=== PATIENT | male | born 1955 | race Hispanic/Latino ===

== ENCOUNTER 2018-05-26 08:41 | Emergency (ER) | payer BC, OTHER ==
[2018-05-26 09:43] LABS: Absolute Lymphocytes (CBC) 2.3 K/uL (0.7-4.9); Absolute Monocytes 0.6 K/uL (0.1-1.3); Absolute Neutrophil 5.1 K/uL (1.8-8.0); Basophils % 0.3 % (0-1.3); Eosinophils % 0.5 % (0-4.4); Hematocrit 44.5 % (39.6-49.0); Lymphocytes % 28.8 % (15.3-44.8); MCH 33.1 pg (27.0-35.0); MCV 96.1 fL (80-100); MPV 7.8 fL (7.6-11.3); Monocytes % 7.2 % (3.3-12.3); RBC Red Blood Cell Count 4.63 M/uL (4.33-5.43)
[2018-05-26 09:47] LABS: Protime INR 1.06
--- NOTE | 2018-05-26 09:47 | RAD REPORT ---
EXAM DESCRIPTION: CT - Head Brain Wo Cont - 05/26/2018 9:31 am CLINICAL HISTORY: Dizziness COMPARISON: None. TECHNIQUE: Computed axial tomography of the head was obtained. IV contrast was not requested. All CT scans are performed using dose optimization technique as appropriate and may include automated exposure control or mA/KV adjustment according to patient size. FINDINGS: An intracranial bleed is not seen . The ventricles are normal in caliber. No extra-axial fluid collection is noted. The right aspect of the sphenoid sinus is opacified. IMPRESSION: No acute intracranial abnormality is seen. If patient's symptoms persist MRI of the bra in would be recommended. Sphenoid sinusitis
[2018-05-26 09:56] LABS: BUN Blood Urea Nitrogen 12 mg/dL (7-18); Bicarbonate 25 mmol/L (21-32); CKMB Creatine Kinase MB < 1.0 ng/mL (0.3-3.6); Creatine Phosphokinase 125 U/L (39-308); Glucose Level 119 mg/dL (74-106); Magnesium 2.2 mg/dL (1.8-2.4); NT PRO-BNP 35 pg/mL (<125); Potassium 3.8 mmol/L (3.5-5.1); Sodium Level 140 mmol/L (136-145)
[2018-05-26] MEDS ORDERED: MECLIZINE HCL 12.5 MG TAB ONE (10:33)
--- NOTE | 2018-05-26 11:14 | ER ---
Nurse's Notes [facility] Name: Juancarlos Robin Age: 62 yrs Sex: Male : 1955 Arrival Date: 05/26/2018 Time: 08:45 Bed 6 Private MD: Balta Rosenthal E Diagnosis: Dizziness and giddiness Presentation: 05/26 08:51 Presenting complaint: Patient states: "I think I got overheated yesterday. I was ss working outside and I got real weak all over. I checked by blood sugar and it was 124, so it wasn't that, but I feel better today just a little lightheaded still.". Transition of care: patient was not received from another setting of care. Onset of symptoms was May 25, 2018. Risk Assessment: Do you want to hurt yourself or someone else? Patient reports no desire to harm self or others. Initial Sepsis Screen: Does the patient meet any 2 criteria? No. Patient's initial sepsis screen is negative. Does the patient have a suspected source of infection? No. Patient's initial sepsis screen is negative. Care prior to arrival: None. 08:51 Method Of Arrival: Ambulatory ss 08:51 Acuity: CHINO 3 ss Historical: - Allergies: 08:54 No Known Allergies; ss - Home Meds: 08:54 doxazosin 2 mg oral tab 1 tab once daily [Active]; losartan 50 mg oral tab 1 tab once ss daily [Active]; - PMHx: 08:54 Hypertension; High Cholesterol; ss - PSHx: 08:54 None; ss - Immunization history:: Adult Immunizations up to date. - Social history:: Smoking status: Patient/guardian denies using tobacco. - Ebola Screening: : Patient denies exposure to infectious person Patient denies travel to an Ebola-affected area in the 21 days before illness onset. Screenin:14 Abuse screen: Denies threats or abuse. Denies injuries from another. Nutritional ph screening: No deficits noted. Tuberculosis screening: No symptoms or risk factors identified. Fall Risk No fall in past 12 months (0 pts). No secondary diagnosis (0 pts). IV access (20 points). Ambulatory Aid- None/Bed Rest/Nurse Assist (0 pts). Gait- Normal/Bed Rest/Wheelchair (0 pts) Mental Status- Oriented to own ability (0 pts). Total Paiz Fall Scale indicates No Risk (0-24 pts). Assessment: 09:00 General: Appears in no apparent distress. comfortable, well groomed, Behavior is calm, ph cooperative, appropriate for age, Denies fever, feeling ill. Pain: Denies pain. Neuro: Level of Consciousness is awake, alert, obeys commands, Oriented to person, place, time, situation, Reports dizziness, since yesterday Denies weakness blurred vision headache. Cardiovascular: Reports fatigue, lightheadedness, Denies chest pain, nausea, shortness of breath, Capillary refill < 3 seconds Patient's skin is warm and dry. Respiratory: Airway is patent Respiratory effort is even, unlabored, Respiratory pattern is regular, symmetrical. GI: No signs and/or symptoms were reported involving the gastrointestinal system. Patient currently denies diarrhea, nausea, vomiting. : No signs and/or symptoms were reported regarding the genitourinary system. Derm: Skin is intact, is healthy with good turgor, Skin is pink, warm \\T\\ dry. Musculoskeletal: Circulation, motion, and sensation intact. Range of motion: intact in all extremities. 10:19 Reassessment: Patient appears in no apparent distress at this time. Patient and/or ph family updated on plan of care and expected duration. Pain level reassessed. Patient is alert, oriented x 3, equal unlabored respirations, skin warm/dry/pink. Pt resting quietly, awaiting lab and CT results. 11:20 Reassessment: Patient appears in no apparent distress at this time. Patient and/or ph family updated on plan of care and expected duration. Pain level reassessed. Patient is alert, oriented x 3, equal unlabored respirations, skin warm/dry/pink. Pt d/c home w/ family. Vital Signs: 08:54 BP 175 / 86; Pulse 89; Resp 16; Temp 97.7(O); Pulse Ox 97% on R/A; Weight 113.4 kg; ss Height 5 ft. 5 in. (165.10 cm); Pain 0/10; 09:44 BP 146 / 81 LA Supine (man/lg); Pulse 71 MON; em1 09:47 BP 164 / 82 LA Sitting (man/lg); Pulse 71 MON; em1 09:49 BP 154 / 80 LA Standing (man/lg); Pulse 78 MON; em1 10:20 BP 147 / 82; Pulse 69; Resp 16; Pulse Ox 98% on R/A; Pain 0/10; ph 11:20 BP 142 / 78; Pulse 16; Resp 72; Temp 97.8; Pulse Ox 99% on R/A; Pain 0/10; ph 08:54 Body Mass Index 41.60 (113.40 kg, 165.10 cm) ED Course: 08:45 Patient arrived in ED. sb2 08:46 Balta Rosenthal MD is Private Physician. sb2 08:52 Triage completed. ss 08:54 Arm band placed on right wrist. ss 08:55 Charisma Vera FNP-C [facility]. kb 08:55 Balta Stephen MD is Attending Physician. kb 09:10 Edna Livingston RN is Primary Nurse. ph 09:15 Patient has correct armband on for positive identification. Placed in gown. Bed in low ph position. Call light in reach. Side rails up X 1. folder machine operator on. Pulse ox on. NIBP on. Warm blanket given. 09:25 EKG done, by nuclear monitoring technician. reviewed by Charisma RICO. at1 09:32 CT Head Brain wo Cont In Process Unspecified. EDMS 11:13 Balta Rosenthal MD is Referral Physician. kb 11:22 No provider procedures requiring assistance completed. IV discontinued, intact, ph bleeding controlled, No redness/swelling at site. Pressure dressing applied. Administered Medications: 10:30 Drug: Meclizine 25 mg Route: PO; ph 11:21 Follow up: Response: No adverse reaction ph Outcome: 11:13 Discharge ordered by . kb 11:22 Discharged to home ambulatory, with family. ph 11:22 Condition: good 11:22 Discharge instructions given to patient, Instructed on discharge instructions, follow up and referral plans. medication usage, Demonstrated understanding of instructions, follow-up care, medications, Prescriptions given X 1. 11:23 Patient left the ED. ph Signatures: Dispatcher [employer] EDMS Charisma Vera FNP-C FNP-Ckb Martinez, Eric em1 Carmencita Lopez RN RN ss Anne Sanchez, insurance follow up specialist EKG Tat1 Edna Livingston RN RN Tiffany Alvarez sb2
--- NOTE | 2018-05-26 11:14 | EDPHYS ---
Physician Documentation [facility] Name: Juancarlos Robin Age: 62 yrs Sex: Male : 1955 Arrival Date: 05/26/2018 Time: 08:45 Bed 6 Private MD: Balta Rosenthal E ED Physician Balta Stephen HPI: 05/26 10:15 This 62 yrs old Male presents to ER via Ambulatory with complaints of kb Dizziness. 10:15 The patient presents with dizziness. Onset: The symptoms/episode began/occurred kb yesterday. Context: occurred at home, outdoors, occurred while the patient was standing, just prior to the episode the patient experienced no apparent symptoms. Modifying factors: The symptoms are alleviated by holding head still, lying down, the symptoms are aggravated by movement of head. Associated signs and symptoms: The patient has no apparent associated signs or symptoms. Severity of symptoms: At their worst the symptoms were moderate in the emergency department the symptoms have improved. Patient's baseline: Neuro: alert and fully oriented, Motor: no deficits, Ambulation: walks without assistance, Speech: normal. The patient has experienced similar episodes in the past, a few times, today's symptoms are similar. The patient has not recently seen a physician. 11:12 Reports dizziness is worse when turning head from side to side, bending over to get kb clothes out of the dryer, and moving too fast. . Historical: - Allergies: 08:54 No Known Allergies; ss - Home Meds: 08:54 doxazosin 2 mg oral tab 1 tab once daily [Active]; losartan 50 mg oral tab 1 tab once ss daily [Active]; - PMHx: 08:54 Hypertension; High Cholesterol; ss - PSHx: 08:54 None; ss - Immunization history:: Adult Immunizations up to date. - Social history:: Smoking status: Patient/guardian denies using tobacco. - Ebola Screening: : Patient denies exposure to infectious person Patient denies travel to an Ebola-affected area in the 21 days before illness onset. ROS: 10:14 Constitutional: Negative for fever, chills, and weight loss, ENT: Negative for injury, kb pain, and discharge, Neck: Negative for injury, pain, and swelling, Cardiovascular: Negative for chest pain, palpitations, and edema, Respiratory: Negative for shortness of breath, cough, wheezing, and pleuritic chest pain, Abdomen/GI: Negative for abdominal pain, nausea, vomiting, diarrhea, and constipation, Back: Negative for injury and pain, : Negative for injury, bleeding, discharge, and swelling, MS/Extremity: Negative for injury and deformity, Skin: Negative for injury, rash, and discoloration. 10:14 Neuro: Positive for dizziness, Negative for altered mental status, gait disturbance, headache, hearing loss, loss of consciousness, numbness, seizure activity, speech changes, syncope, near syncope, tingling, tinnitus, tremor, visual changes, weakness. Exam: 10:14 Constitutional: This is a well developed, well nourished patient who is awake, alert, kb and in no acute distress. Head/Face: Normocephalic, atraumatic. Eyes: Pupils equal round and reactive to light, extra-ocular motions intact. Lids and lashes normal. Conjunctiva and sclera are non-icteric and not injected. Cornea within normal limits. Periorbital areas with no swelling, redness, or edema. ENT: Nares patent. No nasal discharge, no septal abnormalities noted. Tympanic membranes are normal and external auditory canals are clear. Oropharynx with no redness, swelling, or masses, exudates, or evidence of obstruction, uvula midline. Mucous membranes moist. Neck: Trachea midline, no thyromegaly or masses palpated, and no cervical lymphadenopathy. Supple, full range of motion without nuchal rigidity, or vertebral point tenderness. No Meningismus. Chest/axilla: Normal chest wall appearance and motion. Nontender with no deformity. No lesions are appreciated. Cardiovascular: Regular rate and rhythm with a normal S1 and S2. No gallops, murmurs, or rubs. Normal PMI, no JVD. No pulse deficits. Respiratory: Lungs have equal breath sounds bilaterally, clear to auscultation and percussion. No rales, rhonchi or wheezes noted. No increased work of breathing, no retractions or nasal flaring. Abdomen/GI: Soft, non-tender, with normal bowel sounds. No distension or tympany. No guarding or rebound. No evidence of tenderness throughout. Skin: Warm, dry with normal turgor. Normal color with no rashes, no lesions, and no evidence of cellulitis. MS/ Extremity: Pulses equal, no cyanosis. Neurovascular intact. Full, normal range of motion. Neuro: Awake and alert, GCS 15, oriented to person, place, time, and situation. Cranial nerves II-XII grossly intact. Motor strength 5/5 in all extremities. Sensory grossly intact. Cerebellar exam normal. Normal gait. Vital Signs: 08:54 BP 175 / 86; Pulse 89; Resp 16; Temp 97.7(O); Pulse Ox 97% on R/A; Weight 113.4 kg; ss Height 5 ft. 5 in. (165.10 cm); Pain 0/10; 09:44 BP 146 / 81 LA Supine (man/lg); Pulse 71 MON; em1 09:47 BP 164 / 82 LA Sitting (man/lg); Pulse 71 MON; em1 09:49 BP 154 / 80 LA Standing (man/lg); Pulse 78 MON; em1 10:20 BP 147 / 82; Pulse 69; Resp 16; Pulse Ox 98% on R/A; Pain 0/10; ph 11:20 BP 142 / 78; Pulse 16; Resp 72; Temp 97.8; Pulse Ox 99% on R/A; Pain 0/10; ph 08:54 Body Mass Index 41.60 (113.40 kg, 165.10 cm) ss MDM: 08:55 Patient medically screened. kb 10:14 Data reviewed: vital signs, nurses notes. Data interpreted: Pulse oximetry: on room air kb is 97 %. Interpretation: normal. 11:10 Counseling: I had a detailed discussion with the patient and/or guardian regarding: the kb historical points, exam findings, and any diagnostic results supporting the discharge/admit diagnosis, lab results, radiology results, the need for outpatient follow up, a family practitioner, to return to the emergency department if symptoms worsen or persist or if there are any questions or concerns that arise at home. ED course: Pt reports the dizziness has resolved. Stood up without return of symptoms. States "I'm better." Will follow up with Dr Rosenthal and return if needed. 05/26 09:05 Order name: Basic Metabolic Panel; Complete Time: 09:57 kb 05/26 09:05 Order name: CBC with Diff; Complete Time: 09:45 kb 05/26 09:05 Order name: Ckmb; Complete Time: 09:57 kb 05/26 09:05 Order name: CPK; Complete Time: 09:57 kb 05/26 09:05 Order name: Magnesium; Complete Time: 09:57 kb 05/26 09:05 Order name: NT PRO-BNP; Complete Time: 09:57 kb 05/26 09:05 Order name: PT-INR; Complete Time: 09:49 kb 05/26 09:05 Order name: Ptt, Activated; Complete Time: 09:49 kb 05/26 09:05 Order name: Troponin (emerg Dept Use Only); Complete Time: 09:57 kb 05/26 09:05 Order name: EKG; Complete Time: 09:05 kb 05/26 09:05 Order name: Cardiac monitoring; Complete Time: 09:14 kb 05/26 09:05 Order name: EKG - Nurse/Tech; Complete Time: 09:14 kb 05/26 09:05 Order name: CT Head Brain wo Cont; Complete Time: 09:49 kb 05/26 09:05 Order name: IV Saline Lock; Complete Time: 09:44 kb 05/26 09:05 Order name: Labs collected and sent; Complete Time: 09:44 kb 05/26 09:05 Order name: O2 Per Protocol; Complete Time: 09:13 kb 05/26 09:05 Order name: O2 Sat Monitoring; Complete Time: 09:13 kb 05/26 09:05 Order name: Orthostatics; Complete Time: 09:53 kb Administered Medications: 10:30 Drug: Meclizine 25 mg Route: PO; ph 11:21 Follow up: Response: No adverse reaction ph Disposition: 05/27 08:17 Co-signature as Attending Physician, Balta Stephen MD I agree with the assessment and wa plan of care. Disposition: 05/26/18 11:13 Discharged to Home. Impression: Dizziness and giddiness. - Condition is Stable. - Discharge Instructions: Vertigo, [id number], Dizziness, [id number]. - Prescriptions for Meclizine 25 mg Oral Tablet - take 1 tablet by ORAL route every 8 hours As needed; 30 tablet. - Medication Reconciliation Form, Thank You Letter, Antibiotic Education, Prescription Opioid Use form. - Follow up: Emergency Department; When: As needed; Reason: Worsening of condition. Follow up: Balta Rosenthal MD; When: 2 - 3 days; Reason: Recheck today's complaints, Continuance of care, Re-evaluation by your physician. Signatures: Dispatcher [employer] EDCharisma Willis, MACHINE SHOP SUPERVISOR-C MACHINE SHOP SUPERVISOR-Ckb Carmencita Lopez RN RN Edna Livingston RN RN HaileeBalta MD MD wa Corrections: (The following items were deleted from the chart) 05/26 11:23 11:13 05/26/2018 11:13 Discharged to Home. Impression: Dizziness and giddiness. ph Condition is Stable. Forms are Medication Reconciliation Form, Thank You Letter, Antibiotic Education, Prescription Opioid Use. Follow up: Emergency Department; When: As needed; Reason: Worsening of condition. Follow up: Balat Rosenthal; When: 2 - 3 days; Reason: Recheck today's complaints, Continuance of care, Re-evaluation by your physician. kb
--- NOTE | 2018-05-27 08:35 | EKG ---
Test Date: 2018-05-26 Test Time: 09:10:14 Integrity Director: MARIANNA MEASUREMENT RESULTS: Intervals: Rate: 80 AR: 176 QRSD: 86 QT: 390 QTc: 449 [place]: P: 41 AR: 176 QRS: 35 T: 25 INTERPRETIVE STATEMENTS: Normal sinus rhythm Normal ECG Compared to ECG 02/05/2004 08:59:00 No significant changes Electronically Signed On 05-27-18 08:35:13 CDT by Noé Beard
== END 2018-05-26 11:23 | disposition home or self-care (01) ==
LOC: ER 08:41
DX: R42 Dizziness and giddiness (principal); I10 Essential (primary) hypertension; E78.00 Pure hypercholesterolemia, unspecified
CPT/HCPCS: 36415; 70450; 80048; 82550; 82553; 83735; 83880; 84484; 85025; 85610; 85730; 93005; 99284

== ENCOUNTER 2019-05-03 07:27 | Emergency (ER) | payer OTHER, SELFPAY ==
[2019-05-03 08:06] LABS: Absolute Lymphocytes (CBC) 4.5 K/uL (0.7-4.9); Basophils % 0.2 % (0-1.3); Hematocrit 43.4 % (39.6-49.0); Lymphocytes % 37.9 % (15.3-44.8); RBC Red Blood Cell Count 4.54 M/uL (4.33-5.43)
[2019-05-03 08:11] LABS: Protime INR 1.04
--- NOTE | 2019-05-03 08:18 | RAD REPORT ---
EXAM DESCRIPTION: RAD - Chest Single View - 05/03/2019 8:13 am CLINICAL HISTORY: Dizziness, hypertension COMPARISON: None. TECHNIQUE: AP portable chest image was obtained 0806 hours . FINDINGS: Lung volumes are low accentuating heart size and interstitial markings. No significant segundo lure or volume overload seen. No peripheral mass or consolidation identifiable. Heart size is magnified by the shallow inspiration felt to be upper normal. Vasculature accentuated as well. No measurable pleural effusion and no pneumothorax. No acute bony abnormality seen. No acute aortic findings suspected. IMPRESSION: Shallow inspiration exam shows no peripheral mass or consolidation. The heart size, central lung markings and central vasculature are accentuated by shallow inspiration. This could potentially mask the very earliest stages of failure or volume overload.
--- NOTE | 2019-05-03 08:23 | RAD REPORT ---
EXAM DESCRIPTION: CT - Head Brain Wo Cont - 05/03/2019 8:12 am CLINICAL HISTORY: Dizziness, vertigo, hypertension COMPARISON: CT head May 26, 2018 TECHNIQUE: Axial 5 mm thick images of the head were obtained without IV contrast. All CT scans are performed using dose optimization technique as appropriate and may include automated exposure control or mA/KV adjustment according to patient size. FINDINGS: No intracranial hemorrhage, mass, edema or shift of mid-line structures. No acute cortical based infarction seen. No cortical edema or sulcal effacement. Patient has no significant atrophy or chronic ischemic change. No abnormal extra-axial fluid collections. Ventricles are normal. Intracran ial findings match the 2018 comparison. Mastoid air cells are clear. There is chronic right-sided sphenoid sinusitis. Partially visualized pa ranasal sinuses are otherwise clear. No acute bony findings. IMPRESSION: No intracranial abnormality and no change to the intracranial finding since May 2018. Chronic right sphenoid sinusitis findings stable from 2018.
[2019-05-03 08:33] LABS: ALT/SGPT 26 U/L (12-78); AST/SGOT 15 U/L (15-37); Albumin 3.8 g/dL (3.4-5.0); Alkaline Phosphatase 92 U/L (45-117); BUN Blood Urea Nitrogen 19 mg/dL (7-18); Bicarbonate 21 mmol/L (21-32); Bilirubin Direct 0.1 mg/dL (0-0.2); Bilirubin Total 0.4 mg/dL (0.2-1.0); Glucose Level 203 mg/dL (74-106); Magnesium 1.8 mg/dL (1.8-2.4); NT PRO-BNP 24 pg/mL (<125); Potassium 3.1 mmol/L (3.5-5.1); Protein, Total 7.6 g/dL (6.4-8.2); Sodium Level 140 mmol/L (136-145); Troponin (Emerg Dept Use Only) < 0.02 ng/mL (0.0-0.045)
[2019-05-03] MEDS ORDERED: MECLIZINE HCL 12.5 MG TAB ONE (08:34)
[2019-05-03] MEDS ORDERED: ONDANSETRON 4 MG/2 ML VIAL ONE (08:34)
[2019-05-03] MEDS ORDERED: DIAZEPAM 10 MG/2 ML INJ SYRINGE ONE (08:35)
--- NOTE | 2019-05-03 10:36 | RAD REPORT ---
EXAM DESCRIPTION: MRI - Brain Wo Cont - 05/03/2019 10:05 am CLINICAL HISTORY: Dizziness COMPARISON: May 03, [address] TECHNIQUE: Axial, sagittal, and coronal magnetic images of the brain were obtained. Contrast was not requested FINDINGS: Mild signal is present within periventricular, deep and subcortical white matter bilateral ly Diffusion-weighted/ADC mapping does not reveal evidence of acute infarction. The ventricles are normal caliber. An extra-axial fluid collection is not present Opacification of the right aspect of the sphenoid sinus. IMPRESSION: Mild signal is present within periventricular, deep and subcortical white matter bilater ally probably ischemic changes secondary to small vessel disease No acute intracranial abnormality seen Chronic sphenoid sinusitis
--- NOTE | 2019-05-03 10:54 | ER ---
Nurse's Notes [facility] Name: Juancarlos Robin Age: 63 yrs Sex: Male : 1955 Arrival Date: 05/03/2019 Time: 07:32 Bed 2 Private MD: Diagnosis: Dizziness and giddiness;Vertiginous syndromes in diseases classified elsewhere Presentation: 05/03 07:33 Presenting complaint: states: Dizziness and nausea that started at 0615 today. hb Hx of vertigo and HTN. BP 176/82, BGL 167. 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 Transition of care: patient was not received from another setting of care. Onset of symptoms was May 03, 2019 at 06:15. Risk Assessment: Do you want to hurt yourself or someone else? Patient reports no desire to harm self or others. Initial Sepsis Screen: Does the patient meet any 2 criteria? No. Patient's initial sepsis screen is negative. Does the patient have a suspected source of infection? No. Patient's initial sepsis screen is negative. Care prior to arrival: None. 07:33 Method Of Arrival: EMS: [facility] 07:33 Acuity: CHINO 3 hb Historical: - Allergies: 07:36 No Known Allergies; hb - Home Meds: 07:36 doxazosin 2 mg Oral tab 1 tab once daily [Active]; losartan 50 mg Oral tab 1 tab once hb daily [Active]; - PMHx: 07:36 High Cholesterol; Hypertension; hb - PSHx: 07:36 None; hb - Immunization history:: Adult Immunizations up to date. - Social history:: Smoking status: Patient/guardian denies using tobacco. - Ebola Screening: : No symptoms or risks identified at this time. Screenin:36 Abuse screen: Denies threats or abuse. Denies injuries from another. Nutritional hb screening: No deficits noted. Tuberculosis screening: No symptoms or risk factors identified. Fall Risk Total Paiz Fall Scale indicates Low Risk Score (25-44 pts). Fall prevention measures have been instituted. Side Rails Up X 2 Frequent Obs/Assesments occuring As available Patient and Family Educated on Fall Prevention Program and strategies. 07:36 VAN Screening: Arm Drift: Patient shows no arm weakness. Patient is VAN negative. hb Assessment: 07:38 Reassessment: Dr. Gaytan at bedside to evaluate pt, code stroke not indicated at this hb time. 07:40 General: Appears in no apparent distress. Behavior is calm, cooperative. Pain: Denies hb pain. Neuro: Level of Consciousness is awake, alert, obeys commands, Oriented to person, place, time, situation. Cardiovascular: Heart tones S1 S2 present Capillary refill < 3 seconds Patient's skin is warm and dry. Respiratory: Airway is patent Respiratory effort is even, unlabored, Respiratory pattern is regular, symmetrical, Breath sounds are clear bilaterally. GI: Abdomen is non-distended, Bowel sounds present X 4 quads. Abd is soft and non tender X 4 quads. Reports nausea. : No signs and/or symptoms were reported regarding the genitourinary system. EENT: No signs and/or symptoms were reported regarding the EENT system. Derm: Skin is intact, is healthy with good turgor, Skin is pink, warm \T\ dry. Musculoskeletal: No signs and/or symptoms reported regarding the musculoskeletal system. 08:24 Reassessment: Pt c/o nausea, Dr. Gaytan notified, Zofran administered as ordered. VSS. hb 09:15 Reassessment: Patient appears in no apparent distress at this time. Patient and/or hb family updated on plan of care and expected duration. Pain level reassessed. Patient is alert, oriented x 3, equal unlabored respirations, skin warm/dry/pink. 09:40 Reassessment: Pt to MRI. hb 10:24 Reassessment: Pt returned from MRI. NAD. Denies nausea/dizziness. Bed locked in low hb position, call light within reach. Vital Signs: 07:34 BP 171 / 75; Pulse 92; Resp 19; Temp 97.9(TE); Pulse Ox 97% on R/A; jb1 08:30 BP 143 / 63; Pulse 94; Resp 15; Pulse Ox 96% on R/A; Pain 0/10; hb 09:00 BP 124 / 62; Pulse 91; Resp 24; Pulse Ox 97% ; sv NIH Stroke Scale Scores: 07:41 NIHSS Score: 0 hb ED Course: 07:32 Patient arrived in ED. hb 07:33 Robby Gaytan MD is Attending Physician. kdr 07:34 Triage completed. hb 07:36 Arm band placed on. hb 07:36 Patient has correct armband on for positive identification. Bed in low position. Call hb light in reach. 07:37 Kendra Venegas, RN is Primary Nurse. hb 07:50 Inserted saline lock: 20 gauge in right antecubital area, using aseptic technique. hb Blood collected. 08:10 X-ray completed. Portable x-ray completed in exam room. Patient tolerated procedure jb2 well. 08:12 CT Head Brain wo Cont In Process Unspecified. EDMS 08:13 XRAY Chest (1 view) In Process Unspecified. EDMS 08:46 EKG done, by preventative maintenance technician. reviewed by Robby Gaytan MD. sm3 09:45 Patient moved to MRI via stretcher. sv 10:04 MRI - Brain Wo Cont In Process Unspecified. EDMS 11:19 No provider procedures requiring assistance completed. IV discontinued, intact, hb bleeding controlled, No redness/swelling at site. Pressure dressing applied. Administered Medications: 08:23 Drug: Zofran 4 mg Route: IVP; Site: right antecubital; hb 08:55 Follow up: Response: No adverse reaction hb 08:24 Drug: Valium 5 mg Route: IVP; Site: right antecubital; hb 08:55 Follow up: Response: No adverse reaction hb 08:55 Drug: Meclizine 25 mg Route: PO; hb Outcome: 10:53 Discharge ordered by . kdr 11:19 Discharged to home ambulatory. hb 11:19 Condition: stable 11:19 Discharge instructions given to patient, Instructed on discharge instructions, follow up and referral plans. medication usage, Demonstrated understanding of instructions, follow-up care, medications, Prescriptions given X 2. 11:21 Patient left the ED. hb NIH Stroke Scale - NIH Stroke Score Date: 05/03/2019 Time: 07:41 Total Score = 0 1a. Level of Consciousness (LOC) - 0(Alert) 1b. Level of Consciousness (LOC) (Year \T\ Age) - 0(Both) 1c. LOC Commands (Open \T\ Closes Eyes/Finish Remover) - 0(Both) 2. Best Gaze (Lateral Gaze Paresis) - 0(Normal) 3. Visual Field Loss - 0(No visual loss) 4. Facial Palsy - 0(Normal) 5a. Left Arm: Motor (10-second hold) - 0(No drift) 5b. Right Arm: Motor (10-second hold) - 0(No drift) 6a. Left Leg: Motor (5-second hold - always test supine) - 0(No drift) 6b. Right Leg: Motor (5-second hold - always test supine) - 0(No drift) 7. Limb Ataxia (finger/nose \T\ heel/valenzuela - test with eyes open) - 0(Absent) 8. Sensory Loss (pinprick arms/legs/face) - 0(Normal) 9. Best Language: Aphasia (description/naming/reading) - 0(No aphasia) 10. Dysarthria (speech clarity - read or repeat words) - 0(Normal) 11. Extinction and Inattention (visual/tactile/auditory/spatial/personal) - 0(No abnormality) Initials: Signatures: Dispatcher [employer] Gen Morris jb1 Angie Salter RN RN sv Rittger, Kevin, MD MD kdr Buechter, Jesse jb2 Kendra Venegas RN RN hb Montes, Shakira 3
--- NOTE | 2019-05-03 10:54 | EDPHYS ---
Physician Documentation [facility] Name: Juancarlos Robin Age: 63 yrs Sex: Male : 1955 Arrival Date: 05/03/2019 Time: 07:32 Bed 2 Private MD: ED Physician Robby Gaytan HPI: 05/03 07:51 This 63 yrs old Male presents to ER via EMS with complaints of Dizziness. kdr 07:51 The patient presents with dizziness, generalized weakness, lightheadedness, feeling off kdr balance, sense of spinning, vertigo. Onset: The symptoms/episode began/occurred suddenly, just prior to arrival. Context: occurred at work, The patient sates that he awoke fine and went to work. As he was getting out of his truck he began to get dizzy. He tried to drive back home but had difficulty because of the dizziness that made him nauseated and vomit. Modifying factors: The symptoms are alleviated by closing eyes, holding head still, the symptoms are aggravated by movement of head, changing position, Open eyes. 08:11 Associated signs and symptoms: Pertinent positives: ataxia, nausea, vomiting, Pertinent kdr negatives: abdominal pain, agitation, blurred vision, near-syncope, numbness, palpitations. Severity of symptoms: At their worst the symptoms were moderate severe incapacitating in the emergency department the symptoms. 12:53 Patient's baseline: Neuro: alert and fully oriented, Motor: no deficits, Ambulation: kdr walks without assistance. The patient has experienced a previous episode, last year. The patient has not recently seen a physician. Historical: - Allergies: 07:36 No Known Allergies; hb - Home Meds: 07:36 doxazosin 2 mg Oral tab 1 tab once daily [Active]; losartan 50 mg Oral tab 1 tab once hb daily [Active]; - PMHx: 07:36 High Cholesterol; Hypertension; hb - PSHx: 07:36 None; hb - Immunization history:: Adult Immunizations up to date. - Social history:: Smoking status: Patient/guardian denies using tobacco. - Ebola Screening: : No symptoms or risks identified at this time. ROS: 12:53 Constitutional: Negative for fever, chills, and weight loss, Eyes: Negative for injury, kdr pain, redness, and discharge, ENT: Negative for injury, pain, and discharge, Neck: Negative for injury, pain, and swelling, Cardiovascular: Negative for chest pain, palpitations, and edema, Respiratory: Negative for shortness of breath, cough, wheezing, and pleuritic chest pain, Abdomen/GI: Negative for abdominal pain, nausea, vomiting, diarrhea, and constipation, Back: Negative for injury and pain, : Negative for injury, bleeding, discharge, and swelling, MS/Extremity: Negative for injury and deformity, Skin: Negative for injury, rash, and discoloration, Psych: Negative for depression, anxiety, suicide ideation, homicidal ideation, and hallucinations, Allergy/Immunology: Negative for hives, rash, and allergies, Endocrine: Negative for neck swelling, polydipsia, polyuria, polyphagia, and marked weight changes, Hematologic/Lymphatic: Negative for swollen nodes, abnormal bleeding, and unusual bruising. 12:53 Neuro: Positive for dizziness, Negative for gait disturbance, headache, hearing loss, loss of consciousness, numbness, seizure activity, speech changes, syncope, near syncope, tinnitus, tremor, visual changes. 12:53 Neuro: Positive for kdr Exam: 12:53 Constitutional: This is a well developed, well nourished patient who is awake, alert, kdr and in no acute distress. Head/Face: Normocephalic, atraumatic. Eyes: Pupils equal round and reactive to light, extra-ocular motions intact. Lids and lashes normal. Conjunctiva and sclera are non-icteric and not injected. Cornea within normal limits. Periorbital areas with no swelling, redness, or edema. Neck: Trachea midline, no thyromegaly or masses palpated, and no cervical lymphadenopathy. Supple, full range of motion without nuchal rigidity, or vertebral point tenderness. No Meningismus. Chest/axilla: Normal chest wall appearance and motion. Nontender with no deformity. No lesions are appreciated. Cardiovascular: Regular rate and rhythm with a normal S1 and S2. No gallops, murmurs, or rubs. Normal PMI, no JVD. No pulse deficits. Respiratory: Lungs have equal breath sounds bilaterally, clear to auscultation and percussion. No rales, rhonchi or wheezes noted. No increased work of breathing, no retractions or nasal flaring. Abdomen/GI: Soft, non-tender, with normal bowel sounds. No distension or tympany. No guarding or rebound. No evidence of tenderness throughout. Back: No spinal tenderness. No costovertebral tenderness. Full range of motion. Skin: Warm, dry with normal turgor. Normal color with no rashes, no lesions, and no evidence of cellulitis. MS/ Extremity: Pulses equal, no cyanosis. Neurovascular intact. Full, normal range of motion. Neuro: Awake and alert, GCS 15, oriented to person, place, time, and situation. Cranial nerves II-XII grossly intact. Motor strength 5/5 in all extremities. Sensory grossly intact. Cerebellar exam normal. Normal gait. Psych: Awake, alert, with orientation to person, place and time. Behavior, mood, and affect are within normal limits. Vital Signs: 07:34 BP 171 / 75; Pulse 92; Resp 19; Temp 97.9(TE); Pulse Ox 97% on R/A; jb1 08:30 BP 143 / 63; Pulse 94; Resp 15; Pulse Ox 96% on R/A; Pain 0/10; hb 09:00 BP 124 / 62; Pulse 91; Resp 24; Pulse Ox 97% ; sv NIH Stroke Scale Scores: 07:41 NIHSS Score: 0 hb MDM: 10:53 Patient medically screened. kdr 13:01 Data reviewed: vital signs, nurses notes. Counseling: I had a detailed discussion with kdr the patient and/or guardian regarding: the historical points, exam findings, and any diagnostic results supporting the discharge/admit diagnosis, lab results, radiology results, the need for outpatient follow up. 05/03 07:50 Order name: Basic Metabolic Panel; Complete Time: 10:48 [facility] 05/03 07:50 Order name: CBC with Diff; Complete Time: 08:10 [facility] 05/03 07:50 Order name: LFT's; Complete Time: 10:48 [facility] 05/03 07:50 Order name: Magnesium; Complete Time: 10:48 [facility] 05/03 07:50 Order name: NT PRO-BNP; Complete Time: 10:48 [facility] 05/03 07:50 Order name: PT-INR; Complete Time: 08:29 [facility] 05/03 07:50 Order name: Troponin (emerg Dept Use Only); Complete Time: 10:48 [facility] 05/03 07:50 Order name: XRAY Chest (1 view); Complete Time: 08:29 [facility] 05/03 07:50 Order name: CT Head Brain wo Cont; Complete Time: 08:29 kdr 05/03 07:54 Order name: Glucose, Ancillary Testing; Complete Time: 08:10 EDMS 05/03 08:30 Order name: MRI - Brain Wo Cont; Complete Time: 10:48 kdr 05/03 07:50 Order name: EKG; Complete Time: 07:51 kdr 05/03 07:50 Order name: Cardiac monitoring; Complete Time: 08:00 kdr 05/03 07:50 Order name: EKG - Nurse/Tech; Complete Time: 08:00 kdr 05/03 07:50 Order name: IV Saline Lock; Complete Time: 08:00 kdr 05/03 07:50 Order name: Labs collected and sent; Complete Time: 08: kdr 05/03 07:50 Order name: O2 Per Protocol; Complete Time: 08: kdr 05/03 07:50 Order name: O2 Sat Monitoring; Complete Time: 08:01 kdr Administered Medications: 08:23 Drug: Zofran 4 mg Route: IVP; Site: right antecubital; hb 08:55 Follow up: Response: No adverse reaction hb 08:24 Drug: Valium 5 mg Route: IVP; Site: right antecubital; hb 08:55 Follow up: Response: No adverse reaction hb 08:55 Drug: Meclizine 25 mg Route: PO; hb Disposition: 05/03/19 10:53 Discharged to Home. Impression: Dizziness and giddiness, Vertiginous syndromes in diseases classified elsewhere. - Condition is Stable. - Discharge Instructions: Vertigo, [id number], Dizziness, [id number]. - Prescriptions for Meclizine 25 mg Oral Tablet - take 1 tablet by ORAL route every 8 hours As needed; 30 tablet. Valium 5 mg Oral Tablet - take 1 tablet by ORAL route every 8 hours As needed As needed for dizziness; 6 tablet. - Medication Reconciliation Form, Thank You Letter form. - Follow up: Private Physician; When: Tomorrow; Reason: If symptoms return, Further diagnostic work-up, Recheck today's complaints, Continuance of care, Re-evaluation by your physician. - Problem is new. - Symptoms are resolved. NIH Stroke Scale - NIH Stroke Score Date: 05/03/2019 Time: 07:41 Total Score = 0 1a. Level of Consciousness (LOC) - 0(Alert) 1b. Level of Consciousness (LOC) (Year \T\ Age) - 0(Both) 1c. LOC Commands (Open \T\ Closes Eyes/Project Builder) - 0(Both) 2. Best Gaze (Lateral Gaze Paresis) - 0(Normal) 3. Visual Field Loss - 0(No visual loss) 4. Facial Palsy - 0(Normal) 5a. Left Arm: Motor (10-second hold) - 0(No drift) 5b. Right Arm: Motor (10-second hold) - 0(No drift) 6a. Left Leg: Motor (5-second hold - always test supine) - 0(No drift) 6b. Right Leg: Motor (5-second hold - always test supine) - 0(No drift) 7. Limb Ataxia (finger/nose \T\ heel/valenzuela - test with eyes open) - 0(Absent) 8. Sensory Loss (pinprick arms/legs/face) - 0(Normal) 9. Best Language: Aphasia (description/naming/reading) - 0(No aphasia) 10. Dysarthria (speech clarity - read or repeat words) - 0(Normal) 11. Extinction and Inattention (visual/tactile/auditory/spatial/personal) - 0(No abnormality) Initials: hb Signatures: Dispatcher [employer] EDMS Robby Gaytan MD MD kdr Kendra Venegas RN RN hb Corrections: (The following items were deleted from the chart) 11:21 10:53 05/03/2019 10:53 Discharged to Home. Impression: Dizziness and giddiness; hb Vertiginous syndromes in diseases classified elsewhere. Condition is Stable. Forms are Medication Reconciliation Form, Thank You Letter, Antibiotic Education, Prescription Opioid Use. Follow up: Private Physician; When: Tomorrow; Reason: If symptoms return, Further diagnostic work-up, Recheck today's complaints, Continuance of care, Re-evaluation by your physician. Problem is new. Symptoms are resolved. kdr
--- NOTE | 2019-05-03 13:01 | EKG ---
Test Date: 2019-05-03 Test Time: 08:19:24 [employer]: WAN MEASUREMENT RESULTS: Intervals: Rate: 98 OK: 168 QRSD: 96 QT: 366 QTc: 467 [place]: P: 31 OK: 168 QRS: 46 T: 47 INTERPRETIVE STATEMENTS: Normal sinus rhythm Prolonged QT Abnormal ECG Compared to ECG 05/26/2018 09:10:14 Prolonged QT interval now present Electronically Signed On 05-03-19 12:59:39 CDT by Marquise Singh
== END 2019-05-03 11:21 | disposition home or self-care (01) ==
LOC: ER 07:27
DX: R42 Dizziness and giddiness (principal); H82.9 Vertiginous syndromes in diseases classified elsewhere, unspecified ear; E78.00 Pure hypercholesterolemia, unspecified; I10 Essential (primary) hypertension
CPT/HCPCS: 36415; 70450; 70551; 71045; 80048; 80076; 82962; 83735; 83880; 84484; 85025; 85610; 93005; 96374; 96375; 99284; J2405; J3360